=== PATIENT | female | born 1985 | race Caucasian/White ===

== ENCOUNTER 2016-06-18 18:36 | Emergency (ER) | payer BC ==
[~2016-06-18] VITALS: Ht 165.1 cm; Wt 79.8 kg
[2016-06-18] MEDS ORDERED: ACETAMINOPHEN ES 500 MG TABLET PO ONE (19:00)
[2016-06-18] MEDS ORDERED: IBUPROFEN 600 MG TABLET PO ONE ×2 (19:00→19:15)
[2016-06-18] MEDS ORDERED: IV NS 0.9% 1,000 ML BAG IV ONE (19:00)
--- NOTE | 2016-06-18 19:00 | NUR ---
aaox3, came to er c/o FEVER, BODY ACHES, LOWER BACK PAIN SINCE THIS MORNING s/p normal delivery x 2 days ago. RR is even and unlabored with nad noted. Skin is warm and dry. Respiration is even and unlabored with nad noted. Dr Montes at for eval.
[2016-06-18] MEDS ORDERED: IV SET PRIMARY 1 EA INFUS.SET MC ONE ×2 (19:15→21:23)
[2016-06-18] MEDS ORDERED: IV NS 0.9% 1,000 ML ONE ×2 (19:15→21:23)
[2016-06-18] MEDS ORDERED: ACETAMINOPHEN ES 500 MG TABLET ONE (19:15)
--- NOTE | 2016-06-18 19:15 | NUR ---
ekg in progress at bs
[2016-06-18 19:18] LABS: BASOPHILS # (AUTO) 0.4 /CMM (0.0-0.2); BASOPHILS % (AUTO) 1.9 % (0.0-2.0); EOSINOPHILS % (AUTO) 0.1 % (0.0-6.0); HEMATOCRIT 34 % (33-45); HEMOGLOBIN 11.7 g/dL (11.5-14.8); LYMPHOCYTES # (AUTO) 0.7 /CMM (0.8-4.8); LYMPHOCYTES % (AUTO) 3.8 % (20.0-44.0); MEAN CORPUSCULAR HEMOGLOBIN 29 PG (26.0-33.0); MEAN CORPUSCULAR HGB CONC 34 g/dl (31.0-36.0); MEAN CORPUSCULAR VOLUME 85 fL (82-100); MONOCYTES # (AUTO) 0.8 /CMM (0.1-1.30); MONOCYTES % (AUTO) 4.3 % (2.0-12.0); NEUTROPHILS # (AUTO) 16.8 /CMM (1.8-8.9); NEUTROPHILS % (AUTO) 89.9 % (43.0-81.0); PLATELET COUNT (AUTO) 140 /CMM (150-450); RDW COEFFICIENT OF VARIATION 14.3 (11.5-15.0); RED BLOOD CELL COUNT(AUTO) 4.02 MIL/uL (4.0-5.2); WHITE BLOOD COUNT (AUTO) 18.7 K/uL (4.3-11.0)
--- NOTE | 2016-06-18 19:20 | NUR ---
report given to ED, RN for ZAYNAB
--- NOTE | 2016-06-18 19:21 | NUR ---
ASSUMED CARE. PT AAOX4 NO ACUTE DISTRESS NOTED, RESP EVEN AND UNLABORED. PT C/O LOW BACK PAIN 08/23. ER MD MADE AWARE.
[2016-06-18 19:31] LABS: INR 0.89 (0.87-1.13); PROTHROMBIN TIME 9.1 SECS (9.5-12.7)
[2016-06-18 19:33] LABS: ALANINE AMINOTRANSFERASE 16 U/L (12-78); ALBUMIN 2.6 g/dL (3.4-5.0); ALKALINE PHOSPHATASE 104 U/L (46-116); ASPARTATE AMINOTRANSFERASE 19 U/L (15-37); BILIRUBIN,DIRECT 0.1 mg/dL (0.0-0.2); BILIRUBIN,TOTAL 0.9 mg/dL (0.2-1.0); CALCIUM, SERUM 8.2 mg/dL (8.5-10.1); CARBON DIOXIDE 26 mmol/L (21-32); CHLORIDE 105 mmol/L (98-107); CREATININE 0.7 mg/dL (0.6-1.3); GFR 96 mL/min (>60); GLUCOSE 105 mg/dL (74-106); POTASSIUM 3.1 mmol/L (3.5-5.1); SODIUM SERUM 141 mmol/L (136-145); TOTAL PROTEIN, SERUM 6.6 g/dL (6.4-8.2); UREA NITROGEN, BLOOD 7 mg/dL (7-18)
[2016-06-18 19:41] LABS: TROPONIN I < 0.017 ng/mL (0.00-0.056)
--- NOTE | 2016-06-18 19:41 | NUR ---
BREE BAÑUELOS AT BEDSIDE.
[2016-06-18 19:49] LABS: APPEARANCE,URINE Clear (CLEAR); BLOOD, URINE Large Ery/uL (NEGATIVE); COLOR,URINE Yellow (YELLOW); KETONES,URINE Trace (NEGATIVE); LEUKOCYTE ESTERASE ,URINE Small (NEGATIVE); NITRITE, URINE Negative (NEGATIVE); PH,URINE 8.5 (5.0-8.0); PROTEIN,URINE 100 mg/dl (NEGATIVE); UGLUCOSE Negative (NEGATIVE)
[2016-06-18 19:52] LABS: BILIRUBIN,URINE SMALL (NEGATIVE)
[2016-06-18] MEDS ORDERED: POTASSIUM CHLORIDE 20 MEQ TAB.PRT.SR PO ONE ×2 (20:00→21:57)
[2016-06-18 20:20] LABS: ADD URINE CULTURE YES; BACTERIA,URINE Few /HPF (None Seen); RBC,URINE 21-50 /HPF (0-2)
[2016-06-18 20:21] LABS: SQUAMOUS EPITHELIAL CELL,UR Few /HPF (None Seen)
--- NOTE | 2016-06-18 21:17 | NUR ---
CALLED [facility] AT [phone], PAGED , TRANSFERRED [employer] TO
--- NOTE | 2016-06-18 21:19 | NUR ---
MIRIAM LIRIANO SPOKE TO PT ROSA CONDE.
[2016-06-18] MEDS ORDERED: IV NS 0.9% 1,000 ML IV ONE (21:30)
--- NOTE | 2016-06-18 21:49 | NUR ---
ER MD AT BEDSIDE TALKING TO PT REGARDING PLAN OF CARE.
--- NOTE | 2016-06-18 21:57 | NUR ---
IV removed. Catheter intact and site benign. Pressure and 4x4 applied to site. No bleeding noted. Patient discharged to home in stable condition. Written and verbal after care instructions given. Patient verbalizes understanding of instruction. ambulatory with a steady gait noted. pt aaox4 no acute distress noted, resp even and unlabored. pt mom at bedside to take pt home.
[2016-06-18 21:58] VITALS: BP 123/64
== END 2016-06-18 22:02 | disposition home or self-care (01) ==
LOC: ER 18:40
DX: O86.4 Pyrexia of unknown origin following delivery (principal); R79.1 Abnormal coagulation profile
CPT/HCPCS: 36415; 71010-TC; 76856-TC; 80048-TC; 80076-TC; 81000-TC; 83605-TC; 84484-TC; 85025-TC; 85730-TC; 87040-TC; A4606; J7030; Z7610

== ENCOUNTER 2016-07-07 09:30 | Emergency (ER) | payer BC ==
[~2016-07-07] VITALS: Ht 165.1 cm; Wt 72.6 kg
--- NOTE | 2016-07-07 09:33 | NUR ---
AAOX3, CAME TO ER C/O NAUSEA VOMITING DIARRHEA X 3, ALSO C/O DIFFUSE ABDOMINAL CRAMPING. SKIN IS WARM AND DRY. AFEBRILE. RESPIRATION IS EVEN AND UNLABORED WITH NO ACUTE DISTRESS NOTED. AWAITING MD FOR EVAL.
--- NOTE | 2016-07-07 10:20 | NUR ---
LAC #20 IV ACCESS. BLOOD SAMPLE COLLECTED SENT TO LAB
[2016-07-07 10:29] LABS: BASOPHILS % (AUTO) 0.4 % (0.0-2.0); EOSINOPHILS # (AUTO) 0.1 /CMM (0.0-0.7); EOSINOPHILS % (AUTO) 1.7 % (0.0-6.0); HEMATOCRIT 45 % (33-45); HEMOGLOBIN 15.3 g/dL (11.5-14.8); LYMPHOCYTES # (AUTO) 1.2 /CMM (0.8-4.8); LYMPHOCYTES % (AUTO) 20.3 % (20.0-44.0); MEAN CORPUSCULAR HEMOGLOBIN 28 PG (26.0-33.0); MEAN CORPUSCULAR HGB CONC 34 g/dl (31.0-36.0); MEAN CORPUSCULAR VOLUME 82 fL (82-100); MONOCYTES # (AUTO) 0.7 /CMM (0.1-1.30); MONOCYTES % (AUTO) 12.4 % (2.0-12.0); NEUTROPHILS % (AUTO) 65.2 % (43.0-81.0); PLATELET COUNT (AUTO) 251 /CMM (150-450); RDW COEFFICIENT OF VARIATION 13.6 (11.5-15.0); RED BLOOD CELL COUNT(AUTO) 5.53 MIL/uL (4.0-5.2)
[2016-07-07] MEDS ORDERED: IV NS 0.9% 1,000 ML BAG IV ONE (10:30)
[2016-07-07] MEDS ORDERED: ONDANSETRON HCL/PF 4 MG/2 ML VIAL IVP ONE (10:30)
[2016-07-07] MEDS ORDERED: ONDANSETRON HCL/PF 4 MG/2 ML VIAL ONE (10:35)
[2016-07-07] MEDS ORDERED: IV NS 0.9% 1,000 ML ONE (10:35)
[2016-07-07] MEDS ORDERED: IV SET PRIMARY PUMP SET 1 EA INFUS.SET MC ONE (10:35)
[2016-07-07 10:44] LABS: CREATININE 0.8 mg/dL (0.6-1.3); POTASSIUM 3.5 mmol/L (3.5-5.1)
[2016-07-07] MEDS ORDERED: Magnesium 1GM/D5W 100ML PREMIX PIGGYBACK IV ONE (11:00)
[2016-07-07] MEDS ORDERED: Magnesium 1GM/D5W 100ML PREMIX 200 ML IV ONE (11:01)
--- NOTE | 2016-07-07 11:14 | NUR ---
PT MEDICATED ORDERED
--- NOTE | 2016-07-07 11:33 | NUR ---
Patient discharged to home in stable condition. Written and verbal after care instructions given. Patient verbalizes understanding of instruction.
[2016-07-07 11:34] VITALS: BP 127/79
--- NOTE | 2016-07-07 11:34 | NUR ---
IV removed. Catheter intact and site benign. Pressure and 4x4 applied to site. No bleeding noted.
== END 2016-07-07 12:00 | disposition home or self-care (01) ==
LOC: ER 09:31
DX: R10.84 Generalized abdominal pain (principal); R11.2 Nausea with vomiting, unspecified; R19.7 Diarrhea, unspecified; E83.42 Hypomagnesemia
CPT/HCPCS: 36415; 80048; 83735; 85025; 96361; 96365; 96375; 99284; A4606; J2405; J3475; J7030; Z7610